=== PATIENT | male | born 1975 | race Caucasian/White ===

== ENCOUNTER 2019-08-30 11:02 | Outpatient (REF) | payer BC, SELFPAY ==
[2019-08-30 22:39] LABS: COMMENT (LAB VIEW ONLY) 198.98 mg/dL
[2019-08-30 22:45] LABS: ALT 28 U/L (16-63); AST 14 U/L (15-37); Albumin 4.1 g/dL (3.4-5.0); Alkaline Phosphatase 93 U/L (46-116); Anion Gap 5.9 mmol/L (3-11); BUN 16 mg/dL (7-18); Bilirubin, Total 0.3 mg/dL (0.2-1.0); CO2 32.1 mmol/L (21.0-32.0); CREATININE 0.87 mg/dL (0.70-1.30); Calcium 9.2 mg/dL (8.5-10.1); Calculated LDL 102 mg/dL; Chloride 101 mmol/L (98-107); Cholesterol 184 mg/dL (<200); Glucose 142 mg/dL (74-106); HDL Cholesterol 55 mg/dL (40-60); Potassium 4.1 mmol/L (3.5-5.1); Sodium 139 mmol/L (136-145); Total Protein 7.2 g/dL (6.4-8.2); Triglyceride 135 mg/dL (<150)
[2019-09-01 15:18] LABS: HCV RNA Detection Quantitative 0 IU/mL (Undetected)
== END 2019-08-30 11:22 ==
LOC: NCHCN 11:02
PROVIDERS: PCP Family Medicine; Visit Provider Nurse Practitioner Family
DX: Z11.59 Encounter for screening for other viral diseases (principal); E10.9 Type 1 diabetes mellitus without complications; I10 Essential (primary) hypertension; G47.419 Narcolepsy without cataplexy
CPT/HCPCS: 80053; 80061; 82043; 82570; 87522

== ENCOUNTER 2020-10-19 20:08 | Outpatient (REF) | payer BC, SELFPAY ==
[2020-10-19 22:01] LABS: Anion Gap 7.5 mmol/L (3-11); BUN 15 mg/dL (7-18); CO2 30.5 mmol/L (21.0-32.0); CREATININE 0.9 mg/dL (0.70-1.30); Calcium 8.9 mg/dL (8.5-10.1); Chloride 102 mmol/L (98-107); Glucose 91 mg/dL (74-106); Sodium 140 mmol/L (136-145)
[2020-10-19 22:03] LABS: COMMENT (LAB VIEW ONLY) 89.67 mg/dL; Microalb ug/mg Crea 5.8 ug/mg Cr
[2020-10-19 22:04] LABS: Hemoglobin A1C 7.4 % (<5.7)
== END 2020-10-19 20:09 | disposition home or self-care (01) ==
LOC: NCHCN 20:08
PROVIDERS: PCP Family Medicine; Visit Provider Nurse Practitioner Family
DX: I10 Essential (primary) hypertension (principal); E10.9 Type 1 diabetes mellitus without complications
CPT/HCPCS: 80048; 82043; 82570; 83036

== ENCOUNTER 2023-01-26 21:09 | Outpatient (REF) | payer BC, SELFPAY ==
[2023-01-26 21:34] LABS: Anion Gap 6.4 mmol/L (3-11); BUN 16 mg/dL (7-18); CO2 30.6 mmol/L (21.0-32.0); CREATININE 0.9 mg/dL (0.70-1.30); Calculated LDL 95 mg/dL (<100); Chloride 100 mmol/L (98-107); Cholesterol 168 mg/dL (<200); Glucose 205 mg/dL (74-106); HDL Cholesterol 53 mg/dL (40-60); Potassium 4.4 mmol/L (3.5-5.1); Sodium 137 mmol/L (136-145); Triglyceride 103 mg/dL (<150)
[2023-01-26 21:37] LABS: Hemoglobin A1C 8.5 % (<5.7)
[2023-01-26 22:03] LABS: COMMENT (LAB VIEW ONLY) 99.15 mg/dL; Microalb ug/mg Crea 4.9 ug/mg Cr
[2023-01-28 10:16] LABS: HIV-1/2 Ag & Ab Screen Negative (Negative)
== END 2023-01-26 21:10 | disposition home or self-care (01) ==
LOC: NCHCN 21:09
PROVIDERS: PCP Family Medicine; Visit Provider Nurse Practitioner Family
DX: E10.9 Type 1 diabetes mellitus without complications (principal); I10 Essential (primary) hypertension; Z13.220 Encounter for screening for lipoid disorders; Z11.4 Encounter for screening for human immunodeficiency virus [HIV]
CPT/HCPCS: 80048; 80061; 87389; 82043; 82570; 83036

== ENCOUNTER 2025-07-13 17:56 | Outpatient (REF) | payer BC, SELFPAY ==
[2025-07-13 16:17] LABS: ALT 33 U/L (16-63); AST 21 U/L (15-37); Albumin 4.0 g/dL (3.4-5.0); Alkaline Phosphatase 72 U/L (46-116); Anion Gap 9.3 mmol/L (3-11); BUN 15 mg/dL (7-18); Bilirubin, Total 0.3 mg/dL (0.2-1.0); CO2 26.7 mmol/L (21.0-32.0); Calcium 9.1 mg/dL (8.5-10.1); Calculated LDL 103 mg/dL (<100); Chloride 102 mmol/L (98-107); Cholesterol 164 mg/dL (<200); Estimated GFR 106.48 (mL/min/1.73m2); Glucose 65 mg/dL (74-106); HDL Cholesterol 50 mg/dL (>or=40); Potassium 4.1 mmol/L (3.5-5.1); Sodium 138 mmol/L (136-145); Total Protein 7.3 g/dL (6.4-8.2); Triglyceride 56 mg/dL (<150)
[2025-07-13 22:04] LABS: COMMENT (LAB VIEW ONLY) 22.62 mg/dL; Microalb ug/mg Crea 11.9 ug/mg Cr
[2025-07-14 09:53] LABS: HIV-1/2 Ag & Ab Screen Negative (Negative)
[2025-07-14 10:06] LABS: Hepatitis C Ab w Rflx HCV PCR Negative (Negative)
== END 2025-07-13 17:57 | disposition home or self-care (01) ==
LOC: NCHCN 17:56
PROVIDERS: PCP Family Medicine; Visit Provider Nurse Practitioner Family
DX: E10.9 Type 1 diabetes mellitus without complications (principal); Z11.3 Encounter for screening for infections with a predominantly sexual mode of transmission
CPT/HCPCS: 80053; 80061; 86803; 87389; 82043; 82570